=== PATIENT | male | born 1955 | race Caucasian/White ===

== ENCOUNTER 2021-05-08 10:17 | Outpatient (CLI) | payer MEDICARE, OTHER ==
[2005-07-30 06:12] VITALS: BP 156/91
[~2021-05-08] VITALS: Ht 182.9 cm; Wt 118.1 kg
[2021-05-08] VITALS (7 sets, daily range): BP systolic 117–199; BP diastolic 52–100; PULSE 56–69; TEMP 97.5
[~2021-05-08 10:17] MED LIST: ASPIRIN 32325 MG/TAB PO; GLUCOPHAGE500 MG/TAB PO; METOPROLOL50 MG PO; NIACIN1000 MG PO; SIMVASTATIN40 MG PO
[2021-05-08] MEDS ORDERED: LIPITOR 80MG80 MG PO (12:34)
== END 2021-05-08 15:13 ==
LOC: EUO 10:17
DX: U07.1 COVID-19 (principal); I51.9 Heart disease, unspecified
CPT/HCPCS: M0245